=== PATIENT | female | born 1930 | race Caucasian/White ===

== ENCOUNTER 2019-03-13 12:29 | Emergency (ER) | payer BC, MEDICARE ==
[~2019-03-13] VITALS: Ht 160 cm; Wt 73.0 kg
[2019-03-13] MEDS ORDERED: ACET-2605 PO (12:50)
[2019-03-13] MEDS ORDERED: MULT-1168 PO (12:50)
[2019-03-13] MEDS ORDERED: RIVA1PAT12 TD (12:50)
[2019-03-13] MEDS ORDERED: VIT1CAPS6 PO (12:50)
[2019-03-13] MEDS ORDERED: ASPI-1152 PO (12:50)
[2019-03-13] MEDS ORDERED: CALC1TAB30 PO (12:50)
[2019-03-13] MEDS ORDERED: IBUP-1953 PO (12:50)
[2019-03-13] MEDS ORDERED: MEMA28CA5 PO (12:50)
[2019-03-13] MEDS ORDERED: POLY15DR40 RIGHTEYE (12:50)
[2019-03-13] MEDS ORDERED: DONE5TAB34 PO (12:50)
[2019-03-13] MEDS ORDERED: CARB-93 PO (12:50)
[2019-03-13] MEDS ORDERED: OMEG1CAP PO (12:50)
[2019-03-13] MEDS ORDERED: IV NS 0.9% 500 ML BAG IV ONE (13:00)
[2019-03-13 13:36] LABS: BASOPHILS % (AUTO) 0.1 % (0.0-2.0); HEMATOCRIT 48 % (33-45); LYMPHOCYTES # (AUTO) 0.5 /CMM (0.8-4.8); MEAN CORPUSCULAR HGB CONC 33 g/dl (31.0-36.0); MEAN CORPUSCULAR VOLUME 93 fL (82-100); MONOCYTES # (AUTO) 0.9 /CMM (0.1-1.30); MONOCYTES % (AUTO) 5.1 % (2.0-12.0); NEUTROPHILS # (AUTO) 16.6 /CMM (1.8-8.9); NEUTROPHILS % (AUTO) 91.8 % (43.0-81.0); PLATELET COUNT (AUTO) 188 /CMM (150-450); RED BLOOD CELL COUNT(AUTO) 5.22 MIL/uL (4.0-5.2); WHITE BLOOD COUNT (AUTO) 18.1 K/uL (4.3-11.0)
[2019-03-13 13:44] LABS: CALCIUM, SERUM 9.4 mg/dL (8.5-10.1); CARBON DIOXIDE 29 mmol/L (21-32); CHLORIDE 104 mmol/L (98-107); CREATININE 0.8 mg/dL (0.6-1.3); GLUCOSE 136 mg/dL (74-106); POTASSIUM 4.2 mmol/L (3.5-5.1); SODIUM SERUM 142 mmol/L (136-145); UREA NITROGEN, BLOOD 23 mg/dL (7-18)
[2019-03-13 13:50] LABS: ALANINE AMINOTRANSFERASE 26 U/L (12-78); ALBUMIN 3.8 g/dL (3.4-5.0); ALKALINE PHOSPHATASE 91 U/L (46-116); ASPARTATE AMINOTRANSFERASE 29 U/L (15-37); BILIRUBIN,DIRECT 0.1 mg/dL (0.0-0.2); BILIRUBIN,TOTAL 0.6 mg/dL (0.2-1.0); TOTAL PROTEIN, SERUM 7.7 g/dL (6.4-8.2)
[2019-03-13 14:56] VITALS: BP 130/64
== END 2019-03-13 15:00 | disposition short-term general hospital (02) ==
LOC: ER 12:34
DX: I62.00 Nontraumatic subdural hemorrhage, unspecified (principal); R55 Syncope and collapse; G20 Parkinson's disease; F02.80 Dementia in other diseases classified elsewhere, unspecified severity, without behavioral disturbance, psychotic disturbance, mood disturbance, and anxiety; Z88.0 Allergy status to penicillin; Z88.8 Allergy status to other drugs, medicaments and biological substances; Z91.018 Allergy to other foods; Z79.82 Long term (current) use of aspirin
CPT/HCPCS: 36415; 70450; 71045; 80048; 80076; 84484; 85025; 85730; 86850; 93005; 99291; J7030